=== PATIENT | male | born 1950 | race Caucasian/White ===

== ENCOUNTER 2022-11-29 06:58 | Day surgery (SDC) | payer OTHER ==
[2022-11-23 10:04] VITALS: BMI 25.8
[2022-11-29 07:23] VITALS: RESP 20
[2022-11-29] MEDS ORDERED: LIDOCAINE HCL/PF 2% SDV 5ML VIAL ONE (08:17)
[2022-11-29] MEDS ORDERED: PROPOFOL 20 ML ONE (08:17)
[2022-11-29] MEDS ORDERED: MIDAZOLAM HCL 2 MG/2 ML SINGLE DOSE VIAL ONE (08:17)
[2022-11-29] MEDS ORDERED: BUPIVACAINE HCL/PF 0.5% (5MG/ML) 10 ML VIAL ONE ×2 (08:27→08:28)
[2022-11-29] MEDS ORDERED: BUPIVACAINE HCL/PF 2.5 MG/ML - 30 ML VIAL IJ ONE (08:27)
[2022-11-29 09:03] VITALS: BP 150/84; PULSE 84; TEMP 97.4
== END 2022-11-29 08:55 | disposition home or self-care (01) ==
LOC: FASU 06:58
PROVIDERS: ATTEND Orthopaedic Surgery Hand Surgery
PROC: 0JNK0ZZ Release Left Hand Subcutaneous Tissue and Fascia, Open Approach (ICD-10-PCS; principal; 2022-11-29)
DX: Z53.09 Procedure and treatment not carried out because of other contraindication (principal); M72.0 Palmar fascial fibromatosis [Dupuytren]

== ENCOUNTER 2022-12-27 06:27 | Day surgery (SDC) | payer OTHER ==
[2022-12-22 12:06] VITALS: BMI 25.8
[2022-12-27] MEDS ORDERED: LIDOCAINE HCL 2% (20ML MULTI-DOSE VIAL) ONE (07:22)
[2022-12-27] MEDS ORDERED: BUPIVACAINE HCL/PF 0.25% (2.5MG/ML) 10 ML VIAL ONE (07:22)
[2022-12-27] MEDS ORDERED: MIDAZOLAM HCL 2 MG/2 ML SINGLE DOSE VIAL ONE (07:55)
[2022-12-27] MEDS ORDERED: PROPOFOL 20 ML ONE (07:55)
[2022-12-27] MEDS ORDERED: ONDANSETRON 4 MG/2 ML VIAL IVPUSH PRN (08:08)
[2022-12-27] MEDS ORDERED: oxyCODONE HCL 5 MG TABLET PO PRN ×2 (08:08→08:18)
[2022-12-27] MEDS ORDERED: LACTATED RINGERS SOLUTION 1,000 ML IV SCH (08:15)
[2022-12-27] MEDS ORDERED: ACETAMINOPHEN 325 MG TABLET (FP) PO PRN (08:18)
[2022-12-27] MEDS ORDERED: DEXAMETHASONE SOD PHOSPHATE 4 MG/1 ML VIAL ONE (08:27)
[2022-12-27] MEDS ORDERED: ONDANSETRON 4 MG/2 ML VIAL ONE (08:27)
[2022-12-27] MEDS ORDERED: ceFAZolin SODIUM 1 GM VIAL ONE (08:27)
[2022-12-27 09:53] VITALS: RESP 16; TEMP 97.7
[2022-12-27 10:23] VITALS: BP 131/76; PULSE 65
== END 2022-12-27 10:15 | disposition home or self-care (01) ==
LOC: FASU 06:27
PROVIDERS: ATTEND Orthopaedic Surgery Hand Surgery
PROC: 0JNK0ZZ Release Left Hand Subcutaneous Tissue and Fascia, Open Approach (ICD-10-PCS; principal; 2022-12-27 08:28)
DX: M72.0 Palmar fascial fibromatosis [Dupuytren] (principal)
CPT/HCPCS: 88304-TC; 94760